=== PATIENT | female | born 1980 | race Caucasian/White ===

== ENCOUNTER 2017-04-23 22:58 | Emergency (ER) | payer MEDICAID | END 2017-04-23 23:46 | disposition home or self-care (01) | LOC: D.ER 22:58 | DX: M25.512 Pain in left shoulder (principal) ==

== ENCOUNTER 2017-04-29 21:22 | Emergency (ER) | payer MEDICAID ==
[2017-04-29 23:26] LABS: APPEARANCE CLOUDY (CLEAR); BACTERIA MODERATE /hpf (NONE SEEN); BILIRUBIN NEGATIVE (NEGATIVE); COLOR YELLOW (YELLOW); EPITHELIAL CELLS 0-5 /hpf (0-5); GLUCOSE NEGATIVE (NEGATIVE); KETONE NEGATIVE (NEGATIVE); NITRITE NEGATIVE (NEGATIVE); PROTEIN TRACE mg/dL (NEGATIVE); RED CELLS - URINE 25-50 /hpf (0-5); UROBILINOGEN NORMAL (NORMAL); WHITE CELLS - URINE 25-50 /hpf (0-5)
[2017-04-29 23:28] LABS: BASOPHILS 0.1 % (0-2); EOSINOPHILS 1.2 % (0-7); HEMATOCRIT 41.3 % (36.0-48.0); HEMOGLOBIN 14.3 g/dL (12-16); IMMATURE GRANULOCYTES 0.3 % (0-5); LYMPHOCYTES 24.8 % (15-50); MCH 29.9 pg (26.0-34.0); MCHC 34.6 g/dL (31.0-37.0); MCV 86.4 fL (80.0-100.0); MEAN PLATELET VOLUME 11.1 fL (7.4-10.4); MONOCYTES 4.3 % (2-11); NEUTROPHILS 69.3 % (40-80); PLATELET COUNT 158 10x3/uL (130-400); RBC 4.78 10x6/uL (4.00-5.40); RDW 12.5 % (11.5-14.5); WBC 9.3 10x3/uL (4.8-10.8)
== END 2017-04-30 00:33 | disposition home or self-care (01) ==
LOC: D.ER 21:22
PROVIDERS: Physician Assistant Medical
DX: A64 Unspecified sexually transmitted disease (principal)

== ENCOUNTER 2018-03-18 17:31 | Emergency (ER) | payer MEDICAID ==
[~2018-03-18] VITALS: Ht 149.9 cm; Wt 73.6 kg
[2018-03-18 17:35] VITALS: Ht 149.9 cm; Wt 73.6 kg
[2018-03-18] MEDS ORDERED: MOBIC7.5 MG PO (17:39)
[2018-03-18] MEDS ORDERED: REQUIP0.5 MG PO (17:39)
[2018-03-18] MEDS ORDERED: TOPAMAX50 MG PO (17:40)
[2018-03-18] MEDS ORDERED: PROMETRIUM100 MG PO (17:40)
[2018-03-18] MEDS ORDERED: ESTRACE 0.5 MG0.5 MG PO (17:41)
[2018-03-18] MEDS ORDERED: LIPITOR20 MG PO (17:41)
[2018-03-18] MEDS ORDERED: FERROUS SULFAT325 MG PO (17:41)
[2018-03-18 19:21] LABS: APPEARANCE CLEAR (CLEAR); BILIRUBIN NEGATIVE (NEGATIVE); COLOR YELLOW (YELLOW); GLUCOSE NEGATIVE (NEGATIVE); KETONE NEGATIVE (NEGATIVE); NITRITE NEGATIVE (NEGATIVE); PROTEIN NEGATIVE (NEGATIVE); UROBILINOGEN NORMAL (NORMAL)
[2018-03-18 19:22] LABS: BACTERIA MODERATE /hpf (NONE SEEN); EPITHELIAL CELLS 0-5 /hpf (0-5); RED CELLS - URINE 0-5 /hpf (0-5); WHITE CELLS - URINE 0-5 /hpf (0-5)
[2018-03-18 19:23] LABS: AMORPHOUS SEDIMENT >1+ /lpf (NONE SEEN)
[2018-03-18 19:26] LABS: UDS - AMPHET NEGATIVE QUAL (NEGATIVE); UDS - BARB NEGATIVE QUAL (NEGATIVE); UDS - BENZO NEGATIVE QUAL (NEGATIVE); UDS - COCAINE NEGATIVE QUAL (NEGATIVE); UDS - OPIATE NEGATIVE QUAL (NEGATIVE); UDS - PCP NEGATIVE QUAL (NEGATIVE); UDS - THC NEGATIVE QUAL (NEGATIVE)
[2018-03-18 19:36] LABS: BASOPHILS 0.1 % (0-2); EOSINOPHILS 1.3 % (0-7); HEMATOCRIT 41.7 % (36.0-48.0); HEMOGLOBIN 14.7 g/dL (12-16); IMMATURE GRANULOCYTES 0.3 % (0-5); LYMPHOCYTES 29.9 % (15-50); MCH 30.9 pg (26.0-34.0); MCHC 35.3 g/dL (31.0-37.0); MCV 87.8 fL (80.0-100.0); MEAN PLATELET VOLUME 11.2 fL (7.4-10.4); MONOCYTES 5.8 % (2-11); NEUTROPHILS 62.6 % (40-80); PLATELET COUNT 175 10x3/uL (130-400); RBC 4.75 10x6/uL (4.00-5.40); RDW 12.3 % (11.5-14.5); WBC 7.1 10x3/uL (4.8-10.8)
[2018-03-18 19:51] LABS: ALBUMIN 4.3 g/dL (3.4-5.0); ALKALINE PHOSPHATASE 90 U/L (46-116); ALT (SGPT) 58 U/L (10-68); BILIRUBIN - TOTAL 0.43 mg/dL (0.2-1.3); CALC OSMOLALITY 277 mosm/kg (275-300); CALCIUM 9.5 mg/dL (8.5-10.1); CARBON DIOXIDE 23.8 mmol/L (21.0-32.0); CHLORIDE - SERUM 104 mmol/L (98-107); CREATININE - SERUM 0.9 mg/dL (0.6-1.3); GLUCOSE 105 mg/dL (74-106); POTASSIUM - SERUM 3.6 mmol/L (3.5-5.1); SODIUM 140 mmol/L (136-145); UREA NITROGEN 9 mg/dL (7-18); eGFR NON AFRICAN AMERICAN 75 mL/min (90-120)
[2018-03-18 20:02] VITALS: BP 147/80
== END 2018-03-18 20:03 | disposition home or self-care (01) ==
LOC: D.ER 17:31
PROVIDERS: Emergency Medicine
DX: M54.12 Radiculopathy, cervical region (principal); F17.200 Nicotine dependence, unspecified, uncomplicated